=== PATIENT | female | born 1930 | race Caucasian/White ===

== ENCOUNTER → 2016-07-04 | Outpatient (CLI) | payer MEDICARE ==
[~2016-07-04] MED LIST: ARTHROTEC 75 MG PO; BETAPACE AF160 MG PO; COUMADIN6 M2 PO; CVS OMEGA-3 KR1 EACH PO; DILTIAZEM240 M1 PO; DULOXETINE HCL20 MG PO; ECOTRIN325 M1 PO; HYDR12.5C PO; MULTIPLE VITAMI1 T25 PO; OXYCODONE5 M1 PO; PANTOPRAZOLE SO40 MG PO; SIMVASTATIN20 MG PO; SYNTHROID,LEV125 MCG PO; VITAMIN B IJ; VITAMIN D1000 IU PO; VITAMIN E WATE400 I2 PO
[2016-07-04 14:40] VITALS: BP 154/61
[2016-07-04 15:00] VITALS: BP 144/60
[2016-07-04 16:00] VITALS: BP 131/50
== END | disposition home or self-care (01) ==
LOC: RAD 06-29 13:00 → CT 06-29 14:00
PROVIDERS: Orthopaedic Surgery
DX: M51.36 Other intervertebral disc degeneration, lumbar region (principal); M54.5 Low back pain; M48.06 Spinal stenosis, lumbar region; M12.88 Other specific arthropathies, not elsewhere classified, other specified site; M43.16 Spondylolisthesis, lumbar region